=== PATIENT | female | born 1995 ===

== ENCOUNTER 2018-05-24 11:06 | Emergency (ER) | payer OTHER ==
[2018-05-24 11:14] VITALS: BP 123/81
--- NOTE | 2018-05-24 11:48 | UC ---
Respiratory Complaint HPI - HPI Summary HPI Summary: This is scribe Lizet Little documenting for attending Vinod Mejia M.D. Pt is a 22 y/o F who presents to [facility] c/o cough for 2 weeks, worse 1 week ago. Cough is nonproductive and especially worse at night. Takes cough suppressants 1x throughout the day which helps slightly. Denies fever, chills, CP, SOB, sore throat, and post-nasal drip. States that there are individuals at home sick as well. - History of Current Complaint Chief Complaint: UCRespiratory Stated Complaint: RESPRIATORY COMPLAINT Time Seen by Provider: 05/24/18 11:45 Hx Obtained From: Patient Hx Last Menstrual Period: now Onset/Duration: Still Present Severity Currently: None Pain Intensity: 0 Pain Scale Used: 0-10 Numeric Character: Cough: Nonproductive Aggravating Factors: Nothing Alleviating Factors: OTC Meds Associated Signs And Symptoms: Negative: Fever, Chills - Allergies/Home Medications Allergies/Adverse Reactions: Allergies Allergy/AdvReac Type Severity Reaction Status Date / Time No Known Allergies Allergy Verified 05/24/18 11:14 PMH/Surg Hx/FS Hx/Imm Hx - Additional Past Medical History Additional PMH: PMHx: Hay fever (uses albuterol) Negative PMHx: DM, HTN - Surgical History Surgical History: None - Family History Known Family History: Positive: Hypertension, Diabetes - Social History Alcohol Use: None Substance Use Type: None Smoking Status (MU): Never Smoked Tobacco - Immunization History Most Recent Tetanus Shot: 2011 Review of Systems Constitutional: Negative Skin: Negative Eyes: Negative ENT: Negative Respiratory: Cough Cardiovascular: Negative Gastrointestinal: Negative Genitourinary: Negative Motor: Negative Neurovascular: Negative Musculoskeletal: Negative Neurological: Negative Psychological: Negative All Other Systems Reviewed And Are Negative: Yes - Comments Additional Review of Systems Comments: NEGATIVE: Fever, chills, CP, SOB, sore throat, and post-nasal drip Physical Exam - Summary Physical Exam Summary: VITAL SIGNS: Reviewed. GENERAL: Patient is a well-developed and nourished female who is lying comfortable in the stretcher. Patient is not in any acute respiratory distress. HEAD AND FACE: Normocephalic EYES: PERRLA, EOMI x 2. EARS: Hearing grossly intact. MOUTH: Oropharynx within normal limits. NECK: Supple, trachea is midline, no adenopathy, no JVD, no carotid bruit. CHEST: Symmetric, no tenderness at palpation LUNGS: Course breath sounds. No wheezing or crackles. CVS: Regular rate and rhythm, S1 and S2 present, no murmurs or gallops appreciated. EXTREMITIES: Full ROM in all major joints, no edema, no cyanosis or clubbing. NEURO: Alert and oriented x 3. No acute neurological deficits. Speech is normal and follows commands. SKIN: Dry and warm Triage Information Reviewed: Yes Vital Signs: Initial Vital Signs Temp 99.1 F 05/24/18 11:12 Pulse 78 05/24/18 11:12 Resp 18 05/24/18 11:12 BP 123/81 05/24/18 11:12 Pulse Ox 99 05/24/18 11:12 Vital Signs Reviewed: Yes UC Diagnostic Evaluation - Laboratory O2 Sat by Pulse Oximetry: 99 - Radiology Xray Interpretation: No Acute Changes - No active cardiopulmonary disease is noted. Physician reviewed this report. Radiology Interpretation Completed By: Radiologist Re-Evaluation - Re-Evaluation First Eval Re-Evaluation Time: 12:21 Comment: Discussed XR results. Respiratory Course/Dx - Course Course Of Treatment: This patient is a 22-year-old female who presents to the urgent care with chief complaint of having cough. The patient is having the symptoms for about 2 weeks. She reports that she's been taking over-the- counter medications for the cough and she thinks he is getting worse. She also has been having chills but no fever. She is been having body aches. Chest x- ray shows no acute pneumonia. However I believe that the patient has some bronchitis. And since the patient is having the symptoms for 2 weeks [address] decided to place the patient azithromycin. She was instructed to return to the emergency room or the urgent care if the symptoms worsen. The patient understands and agrees. - Differential Dx/Diagnosis Differential Diagnosis/HQI/PQRI: Pulmonary Edema Provider Diagnoses: Bronchitis Discharge - Sign-Out/Discharge Documenting (check all that apply): Patient Departure - Discharge - Discharge Plan Condition: Stable Disposition: HOME Prescriptions: Azithromycin TAB* [Zithromax TAB (Z-TRISH) 250 mg #6 tabs] 2 tab PO .TODAY, THEN 1 DAILY #1 trish Patient Education Materials: Acute Bronchitis (ED) Referrals: [facility] [place] [facility] REFERRAL [Outside] No Primary Care Phys,NOPCP [Primary Care Provider] - Additional Instructions: Take medications as instructed and adhere to plan Take Acetaminophen or ibuprofen for pain or fever Increase your fluid intake Return to the or go to the emergency department if symptoms worsen Follow-up with primary care physician in next 2-3 days - Billing Disposition and Condition Condition: STABLE Disposition: Home
--- NOTE | 2018-05-24 12:40 | RAD ---
Increased indication: Cough. 2 views of the chest including dual energy PA views are reviewed. No mediastinal shift is noted. Heart is of normal size and configuration. Pectus excavatum deformity is noted. IMPRESSION: No active cardiopulmonary disease is noted.
== END 2018-05-24 12:34 | disposition home or self-care (01) ==
LOC: UCEAST 11:06
DX: J40 Bronchitis, not specified as acute or chronic (principal); Z82.49 Family history of ischemic heart disease and other diseases of the circulatory system; Z83.3 Family history of diabetes mellitus
CPT/HCPCS: 71046; 99202; G0463